=== PATIENT | female | born 1985 | race Caucasian/White ===

== ENCOUNTER 2021-01-15 12:47 | Emergency (ER) | payer OTHER, SELFPAY ==
[2021-01-15 12:51] VITALS: BP 126/78; PULSE 91; RESP 17; TEMP 36.6; O2SAT 99; BMI 28.1
--- NOTE | 2021-01-15 13:09 | EX.ED.DYSGE1 ---
HPI History of Present Illness Chief Complaint: Bite Informant: patient Narrative Narrative: Last night, patient woke up with a noise in her room. She had been woken up several times with the noise but had going back to sleep. When she did wake up finally, she noticed a bat was flying around over her and her 's bed. She does not know if she was bitten. She has looked all over her body and found no bite zohra. She has no symptoms at all. However, she contacted health department that did recommend she start the rabies series. She has never been vaccinated before. She has no symptoms so there is nothing that makes symptoms better or worse. Past medical history positive for hypothyroidism, mitral valve prolapse, Hodgkin's lymphoma many years ago Current medications reviewed Allergies amoxicillin Surgery is hysterectomy about 2 months ago no complaints Non-smoker lives with [facility] Medical History Hx of Hodgkins lymphoma Hypothyroid Mitral valve prolapse Home Medications fexofenadine [Fawn] 180 mg PO Q24H 01/15/21 [History Last Taken Unknown] metoprolol succinate 25 mg PO DAILY 01/15/21 [History Last Taken Unknown] rabies vacc,human diploid (PF) 2.5 unit IM Q3D #1 ea 01/15/21 [Rx Last Taken Unknown] thyroid (pork) [[place] Thyroid] 60 mg PO DAILY 01/15/21 [History Last Taken Unknown] Allergy/AdvReac Type Severity Reaction Status Date / Time amoxicillin Allergy Rash Verified 01/15/21 12:48 Social History Smoking Status: Never smoker ROS ROS ED Constitutional Constitutional ED: Denies chills, fever(s) or sweats Eyes Eyes: Denies change in vision ENT ENT ED: Denies rhinorrhea Cardiovascular Cardiovascular: Denies chest pain or palpitations Respiratory/Chest Respiratory/Chest: Denies cough or dyspnea Gastrointestinal Gastrointestinal: Denies nausea or vomiting Musculoskeletal Musculoskeletal: Denies arthralgias or myalgias Integumentary Reports other Details: Patient cannot find any lesions abrasions or bite richardson. ; Denies Abrasions or rash Neurologic Neurologic: Denies headache(s) Endocrine Endocrinology: Denies polydipsia or polyuria Allergic/Immunologic Allergic/Immunologic ED: Denies urticaria EXAM Physical Exam Const Vital Signs: 01/15/21 12:51 Temperature 97.8 F Temperature Source Temporal Pulse Rate 91 Respiratory Rate 17 Blood Pressure 126/78 H Blood Pressure Mean 94 Pulse Ox 99 Oxygen Delivery Method Room Air Positive well nourished and well developed General Appearance ED: well developed and NAD HEENT Negative for trauma Eyes EOMs intact bilaterally Chest Wall inspection of chest normal Resp normal respiratory effort and clear to auscultation bilaterally Cardio regular rate and regular rhythm Back/Spine no CVA tenderness Extremity normal to inspection Neuro oriented x3 Sensorium / Orientation: alert Psych mental status grossly normal Skin no rashes or lesions noted MDM MDM MDM Narrative Medical decision making narrative: Patient has never been immunized. The bat cannot be obtained for evaluation. She will be given rabies immunoglobulin and initiate the vaccine. We will have her return on day 3 7 and 14. Discharge Plan Triage Chief Complaint: Bite ED Provider: Kaleb Delcid Dx/Rx/DC Orders Clinical Impression: Exposure to bat without known bite, Rabies exposure Prescriptions: New rabies vacc,human diploid (PF) 2.5 unit recon soln 2.5 unit IM Q3D Qty: 1 RF: 0 No Action fexofenadine [Fawn] 180 mg Tablet 180 mg PO Q24H RF: 0 metoprolol succinate 25 mg tablet extended release 24 hr 25 mg PO DAILY RF: 0 thyroid (pork) [[place] Thyroid] 60 mg tablet 60 mg PO DAILY RF: 0 Primary Care Provider: Ronit Ziegler Referrals: [facility] Doctor,Out of [NON-STAFF] - Activity Restrictions/Additional Instructions: Return to emergencies on days 3 7 and 14 for repeat vaccination. Disposition Disposition: Home, Self Care
[2021-01-15] MEDS: Rabies Immune Globulin/PF 300 UNIT/ML, 5 ML VIAL 1500 UNIT IM (13:58)
[2021-01-15] MEDS: Rabies Immune Globulin/PF 300 UNIT/ML, 1 ML VIAL 130 UNIT IM (14:04)
[2021-01-15] MEDS: Rabies Vaccine,Human Diploid 2.5 UNITS Vial IM (14:06)
== END 2021-01-15 14:40 | disposition home or self-care (01) ==
LOC: ED 13:17
PROVIDERS: Emergency Provider Emergency Medicine; PCP Family Medicine
DX: Z20.3 Contact with and (suspected) exposure to rabies (principal); E03.9 Hypothyroidism, unspecified; Z79.899 Other long term (current) drug therapy; Z85.71 Personal history of Hodgkin lymphoma
CPT/HCPCS: 90375; 90675; 96372; 99282

== ENCOUNTER 2021-01-18 09:44 | Outpatient (CLI) | payer OTHER, SELFPAY ==
[2021-01-18] MEDS: Rabies Vaccine,Human Diploid 2.5 UNITS Vial IM (10:10)
[2021-01-18 10:20] VITALS: PULSE 98; RESP 16; TEMP 36.2; O2SAT 98; BMI 28.1; BMI 30.5
--- NOTE | 2021-01-18 10:39 | ED.RN ---
pt was observed for shot time greater than 15 min no reaction noted by this rn. pt d/c
== END 2021-01-18 12:00 | disposition home or self-care (01) ==
LOC: ED 18:47
PROVIDERS: PCP Family Medicine
DX: Z23 Encounter for immunization (principal)
CPT/HCPCS: 90675; 96372

== ENCOUNTER 2021-01-22 10:51 | Outpatient (CLI) | payer OTHER, SELFPAY ==
[2021-01-18 10:20] VITALS: BMI 30.5
[2021-01-22 10:54] VITALS: BP 122/80; PULSE 90; RESP 16; TEMP 36.6; O2SAT 99; BMI 29.6
[2021-01-22] MEDS: Rabies Vaccine,Human Diploid 2.5 UNITS Vial IM (11:30)
[2021-01-22 12:33] VITALS: BMI 29.6
--- NOTE | 2021-01-22 12:34 | ED.RN ---
Rabies vaccine given- filled out paper documentation.
== END 2021-01-22 13:25 | disposition home or self-care (01) ==
LOC: ED 15:44
PROVIDERS: PCP Family Medicine
DX: Z23 Encounter for immunization (principal)
CPT/HCPCS: 90675; 96372

== ENCOUNTER 2021-01-29 12:04 | Outpatient (CLI) | payer OTHER, SELFPAY ==
[2021-01-29 12:05] VITALS: BP 120/84; PULSE 88; PULSE 92; RESP 16; RESP 18; TEMP 36.4; O2SAT 97; BMI 27.8; BMI 29.6
[2021-01-29] MEDS: Rabies Vaccine,Human Diploid 2.5 UNITS Vial IM (12:59)
== END 2021-01-29 14:00 | disposition home or self-care (01) ==
LOC: ED 14:03
PROVIDERS: PCP Family Medicine
DX: Z23 Encounter for immunization (principal)
CPT/HCPCS: 90675; 96372

== ENCOUNTER 2021-12-25 16:58 | Observation (INO) | payer OTHER, SELFPAY ==
[2021-12-25 16:59] VITALS: BP 137/84; PULSE 97; RESP 16; TEMP 36.6; O2SAT 100; BMI 25.0
--- NOTE | 2021-12-25 17:16 | EDS_ITS ---
HPI <SANGITA Doshi - Last Filed: 12/25/21 18:49> History of Present Illness Chief Complaint: Numb/Ting Narrative Narrative: 36-year-old female with past medical history of hypothyroidism, remote ocular migraines presents with visual changes and paresthesias. She felt fine today and then napped from 3 30-4 and woke up and the vision in her left eye was blurry in her left hand felt numb and tingly. There was no diplopia or vision loss and the right eye was unaffected. She thought it was maybe because she slept on that side but the symptoms did not improve. On the drive here her vision returned to normal but she continues to have tingling in the left hand. No motor or speech changes. There was no headache today and she states this is not similar to her remote ocular migraines. No recent illness. PFSH <SANGITA Doshi - Last Filed: 12/25/21 18:49> PFSH Medical History (Updated 12/25/21 @ 22:[address] Kaleb Delcid MD) Hx of Hodgkins lymphoma Hypothyroid Mitral valve prolapse Home Medications fexofenadine 180 mg tablet 180 mg PO Q24H 01/15/21 [History Last Taken Unknown] metoprolol succinate 25 mg tablet,extended release 24 hr 25 mg PO DAILY 01/15/21 [History Last Taken Unknown] thyroid (pork) 60 mg tablet ([place] Thyroid) 45 mg PO DAILY 01/15/21 [History Last Taken Unknown] Allergy/AdvReac Type Severity Reaction Status Date / Time amoxicillin Allergy Rash Verified 12/25/21 17:01 Surgical History (Updated 12/25/21 @ 18:[address] Marilee Lozada MD) History of hysterectomy Social History (Updated 12/25/21 @ 18:[address] Marilee Lozada MD) household members: spouse Smoking Status: Never smoker substance use type: does not use ROS <SANGITA Doshi - Last Filed: 12/25/21 18:49> ROS ED ROS Narrative Constitutional: Negative for fever, chills, malaise. Eyes: Positive for visual change. ENT: Negative for sore throat, ear pain, rhinorrhea. CVS: Negative for palpitations, chest pain, syncope. Respiratory: Negative for shortness of breath, cough, orthopnea. GI: Negative for abdominal pain, nausea, vomiting, diarrhea, constipation, melena, hematochezia. : Negative for dysuria, hematuria or frequency. Neuro: Positive for sensory dysfunction negative for headache, motor dysfunction. Skin: Negative for rash, abscess, or wound. Musc: Negative for joint pain, swelling, trauma. Heme: Negative for easy bruising, bleeding, lymphadenopathy. EXAM <SANGITA Doshi - Last Filed: 12/25/21 18:49> Physical Exam Narrative Exam Narrative: CONST: Patient sitting in no acute distress. EYES: Normal inspection. PERRLA, EOMI, visual lou intact. NECK: Normal inspection. RESP: No respiratory distress, CTAB. CVS: Regular rate and rhythm, no murmur, no gallop. SKIN: Color normal, no rash, warm, dry, intact. EXTREMITIES: Normal appearance, no pedal edema. 2+ radial and PT pulses. NEURO: Oriented x4. Face symmetric, 5/5 strength in upper and lower extremities, no drift, normal sensation. Normal finger-nose and [id number] bilaterally. No aphasia or dysarthria, normal gait. PSYCH: Normal affect. Const Vital Signs: 12/25/21 16:59 12/25/21 21:00 Temperature 97.9 F Temperature Source Temporal Pulse Rate 97 109 H Respiratory Rate 16 15 Blood Pressure 137/84 H 116/78 Blood Pressure Mean 101 90 Pulse Ox 100 99 Oxygen Delivery Method Room Air Room Air <Dr. Kaleb Delcid MD - Last Filed: 12/25/21 22:00> Physical Exam Const Vital Signs: 12/25/21 16:59 12/25/21 21:00 Temperature 97.9 F Temperature Source Temporal Pulse Rate 97 109 H Respiratory Rate 16 15 Blood Pressure 137/84 H 116/78 Blood Pressure Mean 101 90 Pulse Ox 100 99 Oxygen Delivery Method Room Air Room Air MDM <SANGITA Doshi - Last Filed: 12/25/21 18:49> [facility] Narrative Medical decision making narrative: Patient presents with acute onset left blurry vision and left upper extremity paresthesia. Visual disturbance resolved prior to arrival but she continues to have tingling in her left hand. She appears well and nontoxic. Vital signs within normal limits. Pupils are equal round and reactive, extraocular motion intact, and there are no visual field deficits. She has normal motor and sensory function in all extremities. Neurological exam is intact with NIH of 0. She has no headache and her symptoms are not similar to her previous ocular migraines. Labs and CT brain scan were obtained and are both normal. I placed a SOC telemetry neurologist evaluation who will determine disposition. Diagnoses 1. Visual disturbance 2. Left upper extremity paresthesias Lab Data Attestation: I reviewed the patient's lab results. Labs: Laboratory Results - last 24 hr 12/25/21 12/25/21 17:35 17:35 WBC 7.2 RBC 4.62 Hgb 13.7 Hct 40.7 MCV 88.1 MCH 29.7 MCHC 33.7 RDW Std Deviation 41.0 RDW Coeff of Moisés 12.7 Plt Count 236 MPV 9.5 Immature Gran % (Auto) 0.300 Neut % (Auto) 53.2 Lymph % (Auto) 35.3 Emmet % (Auto) 8.1 Eos % (Auto) 2.7 Baso % (Auto) 0.4 Absolute Neuts (auto) 3.8 Absolute Lymphs (auto) 2.53 Nucleated RBC % 0 Sodium 140 Potassium 3.7 Chloride 106 Carbon Dioxide 28.0 Anion Gap 6 BUN 16 Creatinine 0.86 Estim Creat Clear Calc 86.25 Est GFR (MDRD) Af Amer 95 Est GFR (MDRD) Non-Af 79 BUN/Creatinine Ratio 18.7 Glucose 100 Calcium 8.9 Radiography Diagnostic Testing: Clinical Impression(s) from Imaging Studies Brain CT 12/25/21 17:20 IMPRESSION: Negative Brain CT without contrast. Electronically Signed: Teddy Bazzi DO at 18:29 EDT , <Dr. Kaleb Delcid MD - Last Filed: 12/25/21 22:00> [facility] Lab Data Labs: Laboratory Results - last 24 hr 12/25/21 12/25/21 17:35 17:35 WBC 7.2 RBC 4.62 Hgb 13.7 Hct 40.7 MCV 88.1 MCH 29.7 MCHC 33.7 RDW Std Deviation 41.0 RDW Coeff of Moisés 12.7 Plt Count 236 MPV 9.5 Immature Gran % (Auto) 0.300 Neut % (Auto) 53.2 Lymph % (Auto) 35.3 Emmet % (Auto) 8.1 Eos % (Auto) 2.7 Baso % (Auto) 0.4 Absolute Neuts (auto) 3.8 Absolute Lymphs (auto) 2.53 Nucleated RBC % 0 Sodium 140 Potassium 3.7 Chloride 106 Carbon Dioxide 28.0 Anion Gap 6 BUN 16 Creatinine 0.86 Estim Creat Clear Calc 86.25 Est GFR (MDRD) Af Amer 95 Est GFR (MDRD) Non-Af 79 BUN/Creatinine Ratio 18.7 Glucose 100 Calcium 8.9 Radiography Diagnostic Testing: Clinical Impression(s) from Imaging Studies Brain CT 12/25/21 17:20 IMPRESSION: Negative Brain CT without contrast. Electronically Signed: Teddy Bazzi DO at 18:29 EDT , Treatment and Re-Evaluation Narrative: I have personally performed a face to face assessment of the patient and have reviewed the NO Note. I performed a substantive portion of the visit including all aspects of the following. My tijerina findings include: History is consistent with left-sided visual blurriness and left-sided arm tingling. No weakness. She states it was blurriness out of the left eye not the left field of vision. It lasted for about 45 minutes and has now resolved. 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 But this was not the same visual change and she has not gotten a migraine. She is back to baseline. No trauma. She has a history of Hodgkin's lymphoma that was treated with chemo and radiation in 2004. No issues since. No history of MS. Exam is essentially normal at this time. NIH is 0. There is no weakness numbness or tingling. No change in visual field. Range of motion is normal. No rashes. No vesicles. Medical Decison Making work-up were pursued including blood work and CT. CT showed no acute process. Patient's symptoms remained gone. She never developed a headache. We have been trying to get teleneurology evaluation. But evidently they are backed up. We have called them. They are not able to tell us when in the future they will be able to get to her. They cannot give any estimate. I did talk to the hospitalist. This is a young healthy patient. Although she has had migraines at this is not presenting at this point like a typical migraine. Patient will be admitted for further evaluation. Discharge Plan Triage Chief Complaint: Numb/Ting ED Midlevel Provider: Bailey Campuzano ED Provider: Kaleb Delcid Dx/Rx/DC Orders Clinical Impression: Transient visual loss, Paresthesia of left arm Prescriptions: No Action fexofenadine [Fawn] 180 mg Tablet 180 mg PO Q24H metoprolol succinate 25 mg tablet extended release 24 hr 25 mg PO DAILY Label Comments: TAKE 1 TABLET BY MOUTH EVERY DAY DO NOT CRUSH OR CHEW (CONTROLLED RELEASE) thyroid (pork) [[place] Thyroid] 60 mg tablet 45 mg PO DAILY Label Comments: TAKE 1 TABLET BY MOUTH EVERY DAY Primary Care Provider: Ronit Ziegler Referrals: Ronit Ziegler MD [Primary Care Provider] - Disposition Disposition: Acute Care Hospital [facility]
--- NOTE | 2021-12-25 17:20 | CT_ITS ---
INDICATION: visual changes, left arm tingling EXAMINATION: CT BRAIN - CT Head or Brain W/O Contrast Injection TECHNIQUE: Multiple axial images were obtained of the head without intravenous contrast. A radiation dose optimization technique was used for this scan. IV Contrast dosage and agent: None. COMPARISON: No prior comparisons. FINDINGS: BRAIN PARENCHYMA: No intra- or extra-axial hemorrhage. No intracranial mass or mass effect. Jimenez/white matter differentiation is maintained and there is no blurring of the basal ganglia. There is no hyperdense vessel. Posterior fossa structures are unremarkable. CSF SPACES: Appropriate for age. No hydrocephalus. Basal cisterns are patent. CALVARIUM, SKULL BASE, PARANASAL SINUSES AND MASTOID AIR CELLS: Clear. No discrete lytic or blastic abnormalities. ORBITS: Both globes, extraocular muscles, optic nerves and retrobulbar fat appear unremarkable. ASPECTS Score for Acute Strokes: 10 CT/Brain/Head without Contrast IMPRESSION: Negative Brain CT without contrast. Electronically Signed: Teddy Bazzi DO at 18:29 EDT ,
--- NOTE | 2021-12-25 17:39 | TELEMED_ITS ---
[facility] Telemed has confirmed receipt of a request for visit. This document confirms receipt of the order initiating the consult. To find the results of the consultation, please view the patient's reports for the scanned Telemed Consult.
[2021-12-25 17:45] LABS: Absolute Lymphocyte Count 2.53 X10^3/uL (0.83-4.51); Absolute Neutrophil Count 3.8 X10^3/uL (2.0-7.7); Basophil# 0.03 X10^3/uL; Basophil% 0.4 % (0-1); Eosinophil# 0.19 X10^3/uL; Eosinophils% 2.7 % (0-5); Hematocrit 40.7 % (37-47); Hemoglobin 13.7 g/dL (12.0-15.0); Lymphocyte # 2.53 X10^3/ul (0.83-4.51); Lymphocyte % 35.3 % (19-41); Mean Corp Hgb Conc 33.7 g/dL (32-36); Mean Corpuscular Hgb 29.7 pg (27.0-32.0); Mean Corpuscular Volume 88.1 fL (81-99); Mean Platelet Vol. 9.5 fl (6.2-12.0); Monocyte# 0.58 X10^3/uL; Monocyte% 8.1 % (0-10); NRBC Flagged by Analyzer 0 % (0-5); Neutrophil # 3.81 X10^3/uL (2.7-7.7); Neutrophil % 53.2 % (47-70); Platelet Count 236 K/mm3 (150-450); RBC Distribution Width CV 12.7 % (11.6-14.6); Red Blood Count 4.62 M/mm3 (4.2-5.4); White Blood Count 7.2 K/mm3 (4.4-11.0)
[2021-12-25 17:59] LABS: Anion Gap 6 (5-15); BUN 16 mg/dL (7-18); BUN/Creat Ratio 18.7 RATIO (10-20); Calcium,Total 8.9 mg/dL (8.5-10.1); Chloride 106 mmol/L (98-107); Creatinine, Serum 0.86 mg/dL (0.55-1.02); EST Glomerular Filtration Rate 79 mL/min (>60); Est Glom Filt Rate - Afr Amer 95 mL/min (>60); Estimated Creatinine Clearance 86.25 ml/min; Glucose 100 mg/dL (74-106); Potassium 3.7 mmol/L (3.5-5.1); Sodium Level 140 mmol/L (136-145)
[2021-12-25 21:00] VITALS: BP 116/78; PULSE 109; RESP 15; O2SAT 99
--- NOTE | 2021-12-25 22:14 | HP.PCM.HOS_ITS ---
HPI - General General Date of Admission: 12/25/21 Date of Service: 12/25/21 Chief Complaint: L eye vision blurring, LUE paresthesias. 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[employer] w/ PMHx: Allergic Rhinitis, Ocular Migraines, MVP/Sinus tachycardia, Hypothyroidism, Hx Hodgkins Lymphoma who presents to the [facility] ED on 12/25/21 with history of onset visual changes and paresthesias upon awakening from a nap at approximately 3:30-4 pm with left eye blurry vision as well as left hand paresthesias with no specific diplopia, vision loss and right eye noted to be unaffected initially feeling as though she potentially could have had symptoms by sleeping all day on her side however did not improve until her drive on route to the ED for evaluation with denied headache and reported that this is not similar to her prior remote ocular migraines. She notes that her prior migraines which have been remote specifically had sensation of aura to the eye which would expand followed by a focal headache on that side. She does report that she recently flew back from [place] where she was staying at a resort. She reports that the vision changes have completely resolved but she still has very mild residual sensation of left hand tingling. Work-up in the ED included T97.9, heart rate 97, BP 137/84, respiratory rate 16, and a percent on room air, CBC with WC 7.2, hemoglobin 13.7, platelet 236 without marked shift, BMP unremarkable, CT brain with no acute intracranial findings, EKG with sinus rhythm with no acute evidence of ischemia. Upon ED evaluation all symptoms had corrected with NIH stroke scale score 0. In the ED patient administered ASA 324 mg po x 1. [facility] Medical History (Updated 12/25/21 @ 22:[address] Marilee Lozada MD) Allergic rhinitis Hx of Hodgkins lymphoma Hypothyroid Mitral valve prolapse Sinus tachycardia Home Medications fexofenadine 180 mg tablet 180 mg PO Q24H 01/15/21 [History Last Taken Unknown] metoprolol succinate 25 mg tablet,extended release 24 hr 25 mg PO DAILY 01/15/21 [History Last Taken Unknown] thyroid (pork) 60 mg tablet ([place] Thyroid) 45 mg PO DAILY 01/15/21 [History Last Taken Unknown] Allergy/AdvReac Type Severity Reaction Status Date / Time amoxicillin Allergy Rash Verified 12/25/21 17:01 Family History (Updated 12/25/21 @ 22:[address] Marilee Lozada MD) Mother Diabetes Breast cancer other (No notable paternal history including DM, CA, HD.) Surgical History (Updated 12/25/21 @ 22:[address] Marilee Lozada MD) History of biopsy History of hysterectomy History of insertion of tunneled central venous catheter (CVC) with port Hx of unilateral salpingectomy Social History (Updated 12/25/21 @ 22:[address] Marilee Lozada MD) household members: spouse and children Smoking Status: Never smoker alcohol intake: current alcohol intake frequency: holidays/special occasions only substance use type: does not use ROS ROS Narrative Admission Review of Systems: CONSTITUTIONAL: No weight loss, fever, chills, + weakness or fatigue. HEENT: + L eye blurry vision. Eyes: No visual loss, double vision or yellow sclerae. Ears, Nose, Throat: No hearing loss, sneezing, congestion, runny nose or sore throat. SKIN: No rash or itching, lesions, wounds. CARDIOVASCULAR: + Hx MVP w/ Hx palpitations. No chest pain, chest pressure or chest discomfort, edema, orthopnea, syncopal events. RESPIRATORY: No shortness of breath, cough or sputum, wheezing, hemoptysis. GASTROINTESTINAL: No anorexia, nausea, vomiting or diarrhea, abdominal pain, melena, BRBPR. GENITOURINARY: No dysuria, frequency, urgency or retention. NEUROLOGICAL: + L eye blurry vision, LUE paresthesias, Hx migraines. No headache, dizziness, syncope, paralysis, ataxia, focal weakness, change in bowel or bladder control, seizure. MUSCULOSKELETAL: No muscle, back pain, joint pain or stiffness. HEMATOLOGIC: No anemia, bleeding or bruising. LYMPHATICS: + Hx enlarged nodes. No history of splenectomy. PSYCHIATRIC: No history of depression or anxiety. ENDOCRINOLOGIC: No reports of sweating, cold or heat intolerance. No polyuria or polydipsia. ALLERGIES: + history of rhinitis. Vital Signs Vital Signs Vital Signs: 12/25/21 16:59 12/25/21 21:00 Temperature 97.9 F Temperature Source Temporal Pulse Rate 97 109 H Respiratory Rate 16 15 Blood Pressure 137/84 H 116/78 Blood Pressure Mean 101 90 Pulse Ox 100 99 Oxygen Delivery Method Room Air Room Air Weight Weight: 160 lb Body Mass Index (BMI) 25.0 Physical Exam Narrative Physical Examination: General: Awake, alert, oriented x 3 and cooperative, seated upright in the ED bed in no apparent distress. Skin: Normal color, normal turgor, no icterus, no cyanosis. HEENT: AT/NC, EOMI, PERRLA, MMM, no carotid bruits or JVD noted, no recurrent blurry vision complaint, lou of vision intact, bilateral scleral injection evident. Lungs: CTA bilaterally, moderate effort, mild decrease BL bases, no rales, ronchi or wheezing. Heart: Regular rate and rhythm; no gallop, rub audible. Abdomen: Soft, NTTP, ND, normal BS, no HSM. Extremities: No cyanosis, clubbing, or edema. Neurological: Patient awake, alert, oriented as noted, cognitive function intact ; pupils equally reactive to light and accommodation, cranial nerves II-XII grossly normal, lou of vision intact moving all 4 extremities, no focal deficits, strength preserved, FTN/HTS intact, negative babinski. Psychiatric: Affect appears acceptably upset, tearful, no acute evidence of depressive or anxiety feelings or history noted. Results Lab / Micro Data Result Diagrams: 12/25/21 17:35 12/25/21 17:35 Labs: Laboratory Results - last 24 hr 12/25/21 17:35: WBC 7.2, RBC 4.62, Hgb 13.7, Hct 40.7, MCV 88.1, MCH 29.7, MCHC 33.7, RDW Std Deviation 41.0, RDW Coeff of Moisés 12.7, Plt Count 236, MPV 9.5, Immature Gran % (Auto) 0.300, Neut % (Auto) 53.2, Lymph % (Auto) 35.3, [place] % (Auto) 8.1, Eos % (Auto) 2.7, Baso % (Auto) 0.4, Absolute Neuts (auto) 3.8, Absolute Lymphs (auto) 2.53, Nucleated RBC % 0 12/25/21 17:35: Sodium 140, Potassium 3.7, Chloride 106, Carbon Dioxide 28.0, Anion Gap 6, BUN 16, Creatinine 0.86, Estim Creat Clear Calc 86.25, Est GFR (MDRD) Af Amer 95, Est GFR (MDRD) Non-Af 79, BUN/Creatinine Ratio 18.7, Glucose 100, Calcium 8.[address] 12/25/21 17:20 IMPRESSION: Negative Brain CT without contrast. 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: Allergic Rhinitis, Ocular Migraines, MVP/Sinus tachycardia, Hypothyroidism, Hx Hodgkins Lymphoma who presents to the [facility] ED on 12/25/21 with history of onset visual changes and paresthesias upon awakening from a nap at approximately 3:30-4 pm with left eye blurry vision as well as left hand paresthesias with no specific diplopia, vision loss and right eye noted to be unaffected initially feeling as though she potentially could have had symptoms by sleeping all day on her side however did not improve until her drive on route to the ED for evaluation with denied headache and reported that this is not similar to her prior remote ocular migraines. #1. Left eye vision changes, left upper extremity paresthesias concerning for TIA/CVA versus possible Complex Migraine w/ prior Remote Ocular migraine Hx: Will admit to PCU, will obtain MRI Brain with and without given age, MRA Head and Neck, ECHO, PT/OT/Speech/Nutrition evaluation per protocol. Will consult Neurology for evaluation if appropriate once imaging and further work-up obtained. Will maintain on asa, add statin w/ AM FLP, fall precautions. UDS, Mag, TSH/FT4, HgA1c, FLP requested. #2. MVP, sinus tachycardia: From discussions with patient if she does not take her metoprolol she has a resting heart rate in the 130s therefore we will continue metoprolol regimen. #3. Hypothyroidism: Continue home synthroid regimen, TSH and FT4 pending. #4. Allergic rhinitis: We will continue patient on Fawn regimen. #5. History of Hodgkin's lymphoma: Remote history, in remission. #6. DVT prophylaxis: SCDs, Lovenox. Charges/Coding Visit Charges OBSV E&M: 32669 Initial observation care L3
[2021-12-25] MEDS: Aspirin 325 MG Tablet PO (22:46)
[2021-12-25 22:49] VITALS: BP 116/78; PULSE 109; RESP 15; TEMP 36.6; O2SAT 99
[2021-12-25 23:15] LABS: Magnesium 2.1 mg/dL (1.6-2.6)
[2021-12-25 23:55] VITALS: BMI 25.4
[2021-12-26] VITALS (14 sets, daily range): BP systolic 104–124; BP diastolic 61–81; PULSE 79–109; RESP 14–18; TEMP 36–36.6; O2SAT 95–100; BMI 25.4
[2021-12-26 00:23] LABS: Amphetamine Urine VISTA NEGATIVE (<1000 ng/mL); Barbiturate Urine VISTA NEGATIVE (< 200 ng/mL); Benzodiazepine Urine VISTA NEGATIVE (< 200 ng/mL); Cocaine Urine VISTA NEGATIVE (< 300 ng/mL); Ecstacy Urine VISTA NEGATIVE (< 500 ng/mL); Methadone Urine VISTA NEGATIVE (< 300 ng/mL); PCP Urine VISTA NEGATIVE (< 25 ng/mL); THC Urine VISTA NEGATIVE (< 50 ng/mL); Vista UDS pH Range 5
[2021-12-26] MEDS: Metoprolol(XL)Succ 25 MG Tablet PO ×2 (00:33→21:01)
[2021-12-26 06:23] LABS: Absolute Lymphocyte Count 2.46 X10^3/uL (0.83-4.51); Absolute Neutrophil Count 2.8 X10^3/uL (2.0-7.7); Basophil# 0.03 X10^3/uL; Basophil% 0.5 % (0-1); Eosinophil# 0.13 X10^3/uL; Eosinophils% 2.2 % (0-5); Hematocrit 39.3 % (37-47); Hemoglobin 12.9 g/dL (12.0-15.0); Lymphocyte # 2.46 X10^3/ul (0.83-4.51); Lymphocyte % 41.3 % (19-41); Mean Corp Hgb Conc 32.8 g/dL (32-36); Mean Corpuscular Hgb 29.2 pg (27.0-32.0); Mean Corpuscular Volume 88.9 fL (81-99); Mean Platelet Vol. 9.7 fl (6.2-12.0); Monocyte# 0.52 X10^3/uL; Monocyte% 8.7 % (0-10); NRBC Flagged by Analyzer 0 % (0-5); Neutrophil # 2.81 X10^3/uL (2.7-7.7); Neutrophil % 47.1 % (47-70); Platelet Count 205 K/mm3 (150-450); RBC Distribution Width CV 12.6 % (11.6-14.6); RBC Distribution Width SD 41.5 fl (35.1-43.9); Red Blood Count 4.42 M/mm3 (4.2-5.4)
[2021-12-26 07:04] LABS: AST(SGOT) 23 U/L (15-37); Alanine Aminotransfer ALT/SGPT 26 U/L (13-56); Albumin, Serum 3.3 g/dL (3.2-5.0); Alkaline Phosphatase 47 U/L (45-117); Anion Gap 6 (5-15); BUN 14 mg/dL (7-18); BUN/Creat Ratio 16.6 RATIO (10-20); Calcium,Total 8.4 mg/dL (8.5-10.1); Chloride 109 mmol/L (98-107); Cholesterol 131 mg/dL (200); Creatinine, Serum 0.84 mg/dL (0.55-1.02); EST Glomerular Filtration Rate 80 mL/min (>60); Est Glom Filt Rate - Afr Amer 97 mL/min (>60); Estimated Creatinine Clearance 88.31 ml/min; Globulin 3.2 g/dL (2.2-4.2); Glucose 87 mg/dL (74-106); High Density Lipoprotein 43 mg/dL; Potassium 3.4 mmol/L (3.5-5.1); Protein, Total 6.5 g/dL (6.4-8.2); Sodium Level 141 mmol/L (136-145); T4 Free Direct 0.86 ng/dL (0.76-1.46); Thyroid Stim Hormone (TSH) 0.74 uIU/mL (0.358-3.74); Triglycerides 109 mg/dL; Very Low Density Lipoprotein 22 mg/dL (5-40)
[2021-12-26] MEDS: Thyroid 15 MG Tablet 45 MG PO (07:35)
[2021-12-26 07:59] LABS: Hemoglobin A1c 5.4 % (3.8-5.6)
--- NOTE | 2021-12-26 08:27 | PCM.PN.HOSP ---
Documented by User: Jeni Best NP, PLEAT PATTERN[employer]KER-C 12/27/21 08:35 Subjective Subjective Patient seen and examined on 12/26/2021. Anticipated discharge home pending neurology consult however following neurology consult, recommended echocardiogram with bubble study for suspected TIA. Objective Data Objective Data Vital Signs: Vital Signs Temp Pulse Resp BP Pulse Ox O2 Del Method 97.5 F L 83 14 93/56 L 98 Room Air 12/27/21 03:00 12/27/21 06:59 12/27/21 03:00 12/27/21 03:00 12/27/21 03:00 12/27/21 03:00 Oxygen Delivery Method Room Air Weight: 162 lb 11.218 oz Body Mass Index (BMI) 25.4 Intake & Output: Intake and Output for Last 24 Hours 12/25/21 12/26/21 12/27/21 23:59 23:59 23:59 Intake Total 1320 / 1620 300 / 300 Balance 1320 / 1620 300 / 300 Lab / Micro Data Result Diagrams: 12/26/21 05:10 12/26/21 05:10 Radiography Diagnostic Testing: Radiology Impression Brain MRI 12/26/21 10:58 IMPRESSION: Unremarkable examination. No evidence for enhancing intracranial mass, acute infarct, acute intracranial hemorrhage, or other significant signal abnormality in the brain. Electronically Signed: Sue Eric MD at 13:43 EDT , Head MRA 12/26/21 10:58 IMPRESSION: No evidence for focal vascular abnormality in the [place] region. Electronically Signed: Sue Eric MD at 13:45 EDT , Neck MRA 12/26/21 10:58 IMPRESSION: Limited study due to horizontal linear artifact across the bilateral proximal carotid bulbs otherwise negative MRA neck. Electronically Signed: Raghu Armando MD at 13:27 EDT , Physical Exam Const alert, oriented x3 and no apparent distress Orientation / Consciousness: awake, oriented to person, oriented to place and oriented to time HEENT normocephalic and moist oral mucous membranes Eyes PERRL, EOMs intact bilaterally and conjunctivae normal Neck no lymphadenopathy Resp normal respiratory effort and clear to auscultation bilaterally Cardio regular rate, regular rhythm and no murmurs Peripheral Pulses: pulses 2+ throughout GI normal to inspection, nondistended, normoactive bowel sounds, non-tender and non-distended Extremity normal to inspection Skin no rashes or lesions noted Lesions: no lesions Rashes: no rashes Trauma: no lacerations or abrasions Neuro CN's II-XII intact bilaterally, no focal motor deficits, no sensory deficits noted and deep tendon reflexes 2+ bilaterally Neuro Narrative: Mild residual left upper extremity tingling Psych mental status grossly normal and affect normal Assessment & Plan Assessment/Plan (1) TIA (transient ischemic attack): PLAN: Plan 1. Suspected TIA-left eye vision changes and left upper extremity numbness/tingling. MRI of brain, MRA of head and neck unremarkable. [facility] neurology consulted. Recommends continuing aspirin 81 mg daily. Obtain echocardiogram with bubble study to assess for PFO. Outpatient follow-up with ophthalmology and neuro. 2. 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 3. Hypothyroidism-continue Synthroid.? TSH, T4 within normal limits. DVT prophylaxis-Lovenox sc This patient was seen by JJ Rodas under the supervision of Dr. Flood. Documented by User: Dr. Ida Flood DO 12/27/21 14:11 Subjective Subjective This patient was seen in conjunction with Jeni Best NP. The following represents my independent simple examination. Please see below for than the above. Patient was seen in the morning. Awaiting MRI. Vision has resolved. Still experiencing some slight tingling in her left hand on the dorsum but otherwise significantly improved. Anxious to go home when possible. Also awaiting evaluation by [facility] neurology. Objective Data Lab / Micro Data Result Diagrams: 12/26/21 05:10 12/26/21 05:10 Physical Exam Const alert, oriented x3, no apparent distress, average body habitus, healthy appearing and well nourished Constitutional Narrative: Middle-aged white female sitting up in a chair at the bedside, appears comfortable nontoxic, very pleasant Orientation / Consciousness: disoriented HEENT head/scalp atraumatic, moist oral mucous membranes and oropharynx normal HEENT Narrative: Dentition is good, Mallampati is 2, no thrush Head and Scalp: normocephalic Resp normal respiratory effort, no retractions, no use of accessory muscles and clear to auscultation bilaterally Auscultation: Negative for crackles, rales, rhonchi or wheezes Cardio regular rate, regular rhythm, S1 normal heart sound, S2 normal heart sound, no murmurs, no rub, no gallops, no clicks and no JVD GI normal to inspection, nondistended, normoactive bowel sounds, soft to palpation, non-tender and non-distended; Negative for hepatosplenomegaly Extremity normal to inspection and no clubbing, cyanosis or edema Extremity Narrative: 2+ pedal pulses Neuro oriented x3, CN's II-XII intact bilaterally, moves all extremities and no focal motor deficits Neuro Narrative: Mild residual left upper extremity tingling in dorsum of left hand Psych affect normal Assessment & Plan Assessment/Plan (1) TIA (transient ischemic attack): PLAN: Plan Assessment: Suspected TIA-left eye blurred vision/left upper extremity paresthesias History of mitral valve prolapse History of sinus tachycardia Hypothyroidism Plan: MRI today [facility] consultations Echo tomorrow Continue aspirin Based on lipids does not need statin Continue home baseline medications Charges/Coding Visit Charges Inpatient E&M: 01792 Subs Hosp L2
[2021-12-26] MEDS: Aspirin 81 MG TAB.CHEW PO (09:47)
[2021-12-26] MEDS: Loratadine 10 MG Tablet PO (09:48)
--- NOTE | 2021-12-26 10:58 | MRI_ITS ---
HISTORY: CVA. TECHNIQUE: Routine [place]/brain 3D time of flight MR angiogram protocol was performed. 3D reconstructions were reviewed. IV Contrast Dosage and Agent: None. COMPARISON: None FINDINGS: ICAs: No significant stenosis at the intracranial/visualized segments. ACAs: No significant stenosis at the visualized segments. MCAs: No significant stenosis at the visualized segments. toxicology teacher: No significant stenosis at the visualized segments. BASILAR ARTERY: No significant stenosis. VERTEBRAL ARTERIES: No significant stenosis at the intradural/visualized segments. No evidence of intracranial aneurysm or vascular malformation. MRI/MRA Head ONLY without Contrast IMPRESSION: No evidence for focal vascular abnormality in the [place] region. Electronically Signed: Sue Eric MD at 13:45 EDT ,
--- NOTE | 2021-12-26 10:58 | MRI_ITS ---
STUDY: MRA NECK WITHOUT CONTRAST REASON FOR EXAM: Female, 36 years old. CVA TECHNIQUE: Source images were obtained, MIPs were performed. The study was performed unenhanced. COMPARISON: None. FINDINGS: RIGHT CAROTID ARTERIES: Normal right common carotid artery (CCA). Horizontal linear artifact across the right proximal carotid bulb. Normal origin of the right internal carotid (ICA) artery without a hemodynamically significant stenosis. Normal visualized cervical portion of the right internal carotid artery. Normal origin of the right external carotid artery (ECA). LEFT CAROTID ARTERIES: Normal left common carotid artery (CCA). Horizontal linear artifact across the left proximal carotid bulb. Normal origin of the left internal carotid (ICA) artery without a hemodynamically significant stenosis. Normal visualized cervical portion of the left internal carotid artery. Normal origin of the left external carotid artery (ECA). VERTEBRAL ARTERIES: Normal antegrade flow within the bilateral vertebral artery without a hemodynamically significant stenosis. They are codominant. MRI/MRA Neck without Contrast IMPRESSION: Limited study due to horizontal linear artifact across the bilateral proximal carotid bulbs otherwise negative MRA neck. Electronically Signed: Raghu Armando MD at 13:27 EDT ,
--- NOTE | 2021-12-26 10:58 | MRI_ITS ---
HISTORY: CVA. TECHNIQUE: Multiplanar and multisequence MR images of the brain were obtained before and after the intravenous administration of 15 cc Dotarem. 665 images. COMPARISON: CT prior day. FINDINGS: BRAIN PARENCHYMA: No significant signal abnormality or enhancing lesion in the brain parenchyma. No abnormal focus of restricted diffusion. No acute intracranial hemorrhage identified. CSF SPACES: Cerebral ventricles, cortical sulci, and other extra-axial CSF spaces within normal limits in size. No significant midline shift or other mass effect.No extra-axial fluid collection. VASCULAR SYSTEM: Major intracranial flow voids are maintained. PARANASAL SINUSES AND MASTOID AIR CELLS: No significant air fluid levels. ORBITS: Symmetric contents. MRI/Brain W/WO Contrast IMPRESSION: Unremarkable examination. No evidence for enhancing intracranial mass, acute infarct, acute intracranial hemorrhage, or other significant signal abnormality in the brain. Electronically Signed: Sue Eric MD at 13:43 EDT ,
--- NOTE | 2021-12-26 12:07 | NURSING ---
NIH late due to patient being off the floor for MRI.
--- NOTE | 2021-12-26 13:56 | DCINST_ITS ---
Discharge Instructions Diet Discharge Diet: No restrictions Activity Discharge Activity: Return to Normal Activity Dressing / Incision Call your doctor if you observe: Numbness or Tingling, Dizziness and Fainting spells Follow Up Care Test Results: Test results from this visit will be discussed in further detail at your follow- up appointment, if applicable. Discharge Plan Admission Admit Date/Time: 12/25/21 22:27 Primary Reason for Your Visit: Paresthesias, vision changes-TIA/CVA ruled out Attending Provider: Ida Flood Primary Care Provider: Ronit Ziegler Consulting Providers: Marilee Lozada Discharge Orders/Prescriptions Prescriptions: No Action fexofenadine [Fawn] 180 mg Tablet 180 mg PO Q24H metoprolol succinate 25 mg tablet extended release 24 hr 25 mg PO DAILY Label Comments: TAKE 1 TABLET BY MOUTH EVERY DAY DO NOT CRUSH OR CHEW (CONTROLLED RELEASE) thyroid (pork) [[place] Thyroid] 60 mg tablet 45 mg PO DAILY Label Comments: TAKE 1 TABLET BY MOUTH EVERY DAY Referrals / Follow Up: Ronit Ziegler MD [Primary Care Provider] - In 1 Week Disposition Disposition (needs filled in before D/C Order can be placed): Home, Self Care
[2021-12-26] MEDS: 0.9% Saline Lock 10 ML Syringe IV (21:01)
[2021-12-27 02:44] VITALS: PULSE 77
[2021-12-27 03:00] VITALS: BP 93/56; PULSE 84; RESP 14; TEMP 36.4; O2SAT 98
--- NOTE | 2021-12-27 05:55 | ECHOD_ITS ---
Reason For Study: TIA/CVA Procedure This was a 2D Doppler, Color Flow transthoracic echocardiogram. Exam performed portable in patient room. Left Ventricle Normal LV size. Left ventricular systolic function is normal. The estimated ejection fraction is 55 %. Normal diastology for age. No regional wall motion abnormalities noted. Right Ventricle Normal RV size. Normal systolic function. Atria Normal left atrium. Normal right atrium. Bubble contrast study negative for right to left interatrial shunt. Mitral Valve Normal mitral valve. Mild (1+) eccentric mitral valve insufficiency. Tricuspid Valve Normal tricuspid valve. Aortic Valve Trisinus/trileaflet aortic valve. Pulmonic Valve Normal pulmonic valve. Great Vessels Normal aortic root. The pulmonary artery is normal size. Normal inferior vena cava. Pericardium/Pleural No pericardial effusion. MMode/2D Measurements & Calculations LVIDd: 4.1 cm IVSd: 0.91 cm Ao root diam: 2.6 cm LVIDs: 3.0 cm LVPWd: 0.79 cm FS: 26.5 % LVAd ap4: 21.7 cm2 LVAd ap2: 17.7 cm2 SV(MOD-sp4): 27.4 ml LVLd ap4: 7.4 cm LVLd ap2: 7.4 cm EDV(MOD-sp4): 54.1 ml EDV(MOD-sp2): 35.4 ml EDV(sp4-el): 53.7 ml EDV(sp2-el): 35.7 ml LVAs ap4: 14.3 cm2 LVAs ap2: 10.7 cm2 LVLs ap4: 6.9 cm LVLs ap2: 5.7 cm ESV(MOD-sp4): 26.7 ml ESV(MOD-sp2): 16.4 ml ESV(sp4-el): 25.2 ml ESV(sp2-el): 17.0 ml EF(MOD-sp4): 50.7 % EF(MOD-sp2): 53.5 % EF(sp4-el): 53.1 % SV(MOD-sp2): 18.9 ml SV(sp4-el): 28.5 ml LA dimension(2D): 2.7 cm Time Measurements MV dec time: 0.18 sec Doppler Measurements & Calculations MV E max binu: 74.8 cm/sec Lat Peak E' Binu: 11.6 cm/sec Med Peak E' Binu: 11.3 cm/sec MV A max binu: 60.8 cm/sec E/E' lat: 6.5 E/E' med: 6.6 MV E/A: 1.2 MV V2 max: 93.7 cm/sec MV dec slope: 425.8 cm/sec2 Ao V2 max: 95.7 cm/sec MV max P.5 mmHg Ao max P.7 mmHg MV V2 mean: 61.5 cm/sec Ao V2 mean: 69.3 cm/sec MV mean P.7 mmHg Ao mean P.2 mmHg MV V2 VTI: 22.2 cm Ao V2 VTI: 19.5 cm LV V1 max: 84.3 cm/sec PA V2 max: 75.8 cm/sec LV V1 max P.8 mmHg LV V1 mean P.7 mmHg LV V1 mean: 60.3 cm/sec LV V1 VTI: 18.6 cm ECHO/Echo Complete Interpretation Summary Normal LV size. Left ventricular systolic function is normal. The estimated ejection fraction is 55 %. Bubble contrast study negative for right to left interatrial shunt. Normal diastology for age. Mild (1+) eccentric mitral valve insufficiency. Ordering Physician: Ida Flood Performed By: Etelvina Hernandez RCS
[2021-12-27 06:59] VITALS: PULSE 83
[2021-12-27] MEDS: Aspirin 81 MG TAB.CHEW PO (08:12)
[2021-12-27] MEDS: Loratadine 10 MG Tablet PO (08:12)
[2021-12-27] MEDS: Thyroid 15 MG Tablet 45 MG PO (08:13)
[2021-12-27 08:28] VITALS: O2SAT 94
[2021-12-27 09:00] VITALS: BP 91/55; PULSE 84; RESP 18; TEMP 36.7; O2SAT 100
--- NOTE | 2021-12-27 13:15 | PCM.DC ---
Discharge Instructions Diet Discharge Diet: No restrictions Activity Discharge Activity: Return to Normal Activity Dressing / Incision Call your doctor if you observe: Numbness or Tingling, Dizziness and Fainting spells Follow Up Care Test Results: Test results from this visit will be discussed in further detail at your follow-up appointment, if applicable. Discharge Plan Admission Admit Date/Time: 12/25/21 22:27 Primary Reason for Your Visit: Paresthesias, vision changes-possible TIA Attending Provider: Christopher Tomas Primary Care Provider: Ronit Ziegler Consulting Providers: Marilee Lozada ; Ida Flood Discharge Orders/Prescriptions Prescriptions: New aspirin 81 mg Tablet,Chewable 81 mg PO BREAKFAST Qty: 30 0RF Continued fexofenadine 180 mg Tablet 180 mg PO Q24H metoprolol succinate 25 mg tablet extended release 24 hr 25 mg PO DAILY Label Comments: TAKE 1 TABLET BY MOUTH EVERY DAY DO NOT CRUSH OR CHEW (CONTROLLED RELEASE) thyroid (pork) [[place] Thyroid] 60 mg tablet 45 mg PO DAILY Label Comments: TAKE 1 TABLET BY MOUTH EVERY DAY Referrals / Follow Up: Ronit Ziegler MD [Primary Care Provider[facility] - Within 1 Week Margarito Mc MD [STAFF PHYSICIAN] - Within 1 Month Disposition Disposition (needs filled in before D/C Order can be placed): Home, Self Care
--- NOTE | 2021-12-27 13:43 | PCM.DC.SUM ---
Documented by User: Jeni Best NP, ANIMAL SCIENCE PROFESSOR-C 12/27/21 13:43 Providers Date of Admission: 12/25/21 Date of Discharge: 12/27/21 Primary Care Physician: Dr. Ronit Ziegler MD Reason For Visit: TIA/CVA, ? COMPLEX MIGRAINE Diagnosis Discharge Diagnosis (1) Transient visual loss: Status: Acute Code(s): H53.129 - Transient visual loss, unspecified eye (2) Paresthesia of left arm: Status: Acute Code(s): R20.2 - Paresthesia of skin Medications at Discharge Home Medications fexofenadine 180 mg tablet 180 mg PO Q24H 01/15/21 metoprolol succinate 25 mg tablet,extended release 24 hr 25 mg PO DAILY 01/15/21 thyroid (pork) 60 mg tablet ([place] Thyroid) 45 mg PO DAILY 01/15/21 aspirin 81 mg chewable tablet 81 mg PO BREAKFAST #30 tabs 12/27/21 Hospital Course Operations None Procedures 2-D Echocardiogram Summary of Care Provided Hospital Course: Patient is a 36-year-old female admitted 12/25/2021 due to left eye vision blurring and left upper extremity paresthesias. 1. Probable TIA-MRI of brain, MRA of head and neck unremarkable. [facility] neurology consulted during admission. Recommends continued daily baby aspirin. Echocardiogram negative for PFO, EF 55%, mild mitral valve insufficiency. Follow-up with neurology and ophthalmology. TIA risk factors include recent COVID as well as recent travel. Lipid profile within normal limits. 2. 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 Echo per above. 3. Hypothyroidism-continue Synthroid. TSH, T4 within normal limits. Physical Exam Const alert, oriented x3 and no apparent distress Orientation / Consciousness: awake, oriented to person, oriented to place and oriented to time HEENT normocephalic and moist oral mucous membranes Eyes PERRL, EOMs intact bilaterally and conjunctivae normal Neck no lymphadenopathy Resp normal respiratory effort and clear to auscultation bilaterally Cardio regular rate, regular rhythm and no murmurs Peripheral Pulses: pulses 2+ throughout GI normal to inspection, nondistended, normoactive bowel sounds, non-tender and non-distended Extremity normal to inspection Skin no rashes or lesions noted Lesions: no lesions Rashes: no rashes Trauma: no lacerations or abrasions Neuro CN's II-XII intact bilaterally, no focal motor deficits, no sensory deficits noted and deep tendon reflexes 2+ bilaterally Neuro Narrative: Neuro grossly intact Psych mental status grossly normal and affect normal Patient seen and examined prior to discharge. Physical assessment as noted above. Patient is stable for discharge with follow up recommendations as noted above. This patient was seen by JJ Rodas under the supervision of Dr. Tomas. Time spent examining patient, reviewing data and subsequent management of care: 23 minutes Physical Exam Const alert, oriented x3 and no apparent distress Orientation / Consciousness: awake, oriented to person, oriented to place and oriented to time HEENT normocephalic and moist oral mucous membranes Eyes PERRL, EOMs intact bilaterally and conjunctivae normal Neck no lymphadenopathy Resp normal respiratory effort and clear to auscultation bilaterally Cardio regular rate, regular rhythm and no murmurs Peripheral Pulses: pulses 2+ throughout GI normal to inspection, nondistended, normoactive bowel sounds, non-tender and non-distended Extremity normal to inspection Skin no rashes or lesions noted Lesions: no lesions Rashes: no rashes Trauma: no lacerations or abrasions Neuro CN's II-XII intact bilaterally, no focal motor deficits, no sensory deficits noted and deep tendon reflexes 2+ bilaterally Neuro Narrative: Mild tingling left upper extremity, sensation intact. Psych mental status grossly normal and affect normal Weight / BMI Weight Weight: 162 lb 11.218 oz Body Mass Index (BMI) 25.4 ABG / Lab / Microbiology Data Result Diagrams: 12/26/21 05:10 12/26/21 05:10 Laboratory: Laboratory Results - last 24 hr 12/25/21 17:35: WBC 7.2, RBC 4.62, Hgb 13.7, Hct 40.7, MCV 88.1, MCH 29.7, MCHC 33.7, RDW Std Deviation 41.0, RDW Coeff of [place] 12.7, Plt Count 236, MPV 9.5, Immature Gran % (Auto) 0.300, Neut % (Auto) 53.2, Lymph % (Auto) 35.3, [place] % (Auto) 8.1, Eos % (Auto) 2.7, Baso % (Auto) 0.4, Absolute Neuts (auto) 3.8, Absolute Lymphs (auto) 2.53, Nucleated RBC % 0 12/25/21 17:35: Sodium 140, Potassium 3.7, Chloride 106, Carbon Dioxide 28.0, Anion Gap 6, BUN 16, Creatinine 0.86, Estim Creat Clear Calc 86.25, Est GFR (MDRD) Af Amer 95, Est GFR (MDRD) Non-Af 79, BUN/Creatinine Ratio 18.7, Glucose 100, Calcium 8.9 12/25/21 17:38: Magnesium 2.1 12/25/21 22:52: Urine Opiates Screen NEGATIVE, Urine Methadone Screen NEGATIVE, Ur Barbiturates Screen NEGATIVE, Ur Phencyclidine Scrn NEGATIVE, Ur Amphetamines Screen NEGATIVE, MDMA (Ecstasy) Screen NEGATIVE, U Benzodiazepines Scrn NEGATIVE, Urine Cocaine Screen NEGATIVE, U Cannabinoids Screen NEGATIVE, Ur Drug Screen Comment 12/26/21 05:10: WBC 6.0, RBC 4.42, Hgb 12.9, Hct 39.3, MCV 88.9, MCH 29.2, MCHC 32.8, RDW Std Deviation 41.5, RDW Coeff of [place] 12.6, Plt Count 205, MPV 9.7, Immature Gran % (Auto) 0.200, Neut % (Auto) 47.1, Lymph % (Auto) 41.3 H, [place] % (Auto) 8.7, Eos % (Auto) 2.2, Baso % (Auto) 0.5, Absolute Neuts (auto) 2.8, Absolute Lymphs (auto) 2.46, Nucleated RBC % 0 12/26/21 05:10: Sodium 141, Potassium 3.4 L, Chloride 109 H, Carbon Dioxide 26.0, Anion Gap 6, BUN 14, Creatinine 0.84, Estim Creat Clear Calc 88.31, Est GFR (MDRD) Af Amer 97, Est GFR (MDRD) Non-Af 80, BUN/Creatinine Ratio 16.6, Glucose 87, Calcium 8.4 L, Total Bilirubin 0.70, AST 23, ALT 26, Alkaline Phosphatase 47, Total Protein 6.5, Albumin 3.3, Globulin 3.2, Albumin/Globulin Ratio 1.0, Triglycerides 109, Cholesterol 131, LDL Cholesterol 66, VLDL Cholesterol 22, HDL Cholesterol 43, TSH 0.74, Free T4 0.86 12/26/21 05:10: Hemoglobin A1c 5.4 Radiography Diagnostic Testing: Radiology Impression Brain CT 12/25/21 17:20 IMPRESSION: Negative Brain CT without contrast. Electronically Signed: Teddy DO Rose Mary at 18:29 EDT , Brain MRI 12/26/21 10:58 IMPRESSION: Unremarkable examination. No evidence for enhancing intracranial mass, acute infarct, acute intracranial hemorrhage, or other significant signal abnormality in the brain. Electronically Signed: Sue Eric MD at 13:43 EDT , Head MRA 12/26/21 10:58 IMPRESSION: No evidence for focal vascular abnormality in the [place] region. Electronically Signed: Sue Eric MD at 13:45 EDT , Neck MRA 12/26/21 10:58 IMPRESSION: Limited study due to horizontal linear artifact across the bilateral proximal carotid bulbs otherwise negative MRA neck. Electronically Signed: Raghu Armando MD at 13:27 EDT , D/C Instructions Discharge Diet: No restrictions Call your doctor if you observe: Numbness or Tingling, Dizziness and Fainting spells Meaningful Use Info Meaningful Use Diagnoses (Choose all that apply): None applicable Discharge Plan Admission Admit Date/Time: 12/25/21 22:27 Primary Reason for Your Visit: Paresthesias, vision changes-possible TIA Attending Provider: Christopher Tomas Primary Care Provider: Ronit Ziegler Consulting Providers: Marilee Lozada ; Ida Flood Discharge Orders/Prescriptions Prescriptions: New aspirin 81 mg Tablet,Chewable 81 mg PO BREAKFAST Qty: 30 0RF Continued fexofenadine 180 mg Tablet 180 mg PO Q24H metoprolol succinate 25 mg tablet extended release 24 hr 25 mg PO DAILY Label Comments: TAKE 1 TABLET BY MOUTH EVERY DAY DO NOT CRUSH OR CHEW (CONTROLLED RELEASE) thyroid (pork) [[place] Thyroid] 60 mg tablet 45 mg PO DAILY Label Comments: TAKE 1 TABLET BY MOUTH EVERY DAY Referrals / Follow Up: [facility] [Other] - Within 1 Week Ronit Ziegler MD [Primary Care Provider] - In 1 Week Margarito Mc MD [STAFF PHYSICIAN] - Within 1 Month Disposition Disposition (needs filled in before D/C Order can be placed): Home, Self Care Documented by User: Dr. Chritsopher Tomas MD 12/27/21 14:19 Providers Date of Admission: 12/25/21 Reason For Visit: TIA/CVA, ? COMPLEX MIGRAINE Diagnosis Discharge Diagnosis (1) Transient visual loss: Status: Acute Code(s): H53.129 - Transient visual loss, unspecified eye (2) Paresthesia of left arm: Status: Acute Code(s): R20.2 - Paresthesia of skin Medications at Discharge Home Medications fexofenadine 180 mg tablet 180 mg PO Q24H 01/15/21 metoprolol succinate 25 mg tablet,extended release 24 hr 25 mg PO DAILY 01/15/21 thyroid (pork) 60 mg tablet ([place] Thyroid) 45 mg PO DAILY 01/15/21 aspirin 81 mg chewable tablet 81 mg PO BREAKFAST #30 tabs 12/27/21 ABG / Lab / Microbiology Data Result Diagrams: 12/26/21 05:10 12/26/21 05:10 Discharge Plan Admission Admit Date/Time: 12/25/21 22:27 Primary Reason for Your Visit: Paresthesias, vision changes-possible TIA Attending Provider: Christopher Tomas Primary Care Provider: Ronit Ziegler Consulting Providers: Marilee Lozada ; Ida Flood Discharge Orders/Prescriptions Prescriptions: New aspirin 81 mg Tablet,Chewable 81 mg PO BREAKFAST Qty: 30 0RF Continued fexofenadine 180 mg Tablet 180 mg PO Q24H metoprolol succinate 25 mg tablet extended release 24 hr 25 mg PO DAILY Label Comments: TAKE 1 TABLET BY MOUTH EVERY DAY DO NOT CRUSH OR CHEW (CONTROLLED RELEASE) thyroid (pork) [[place] Thyroid] 60 mg tablet 45 mg PO DAILY Label Comments: TAKE 1 TABLET BY MOUTH EVERY DAY Referrals / Follow Up: [facility] [Other] - Within 1 Week Ronit Ziegler MD [Primary Care Provider] - In 1 Week Margarito Mc MD [STAFF PHYSICIAN] - Within 1 Month Disposition Disposition (needs filled in before D/C Order can be placed): Home, Self Care Charges/Coding Addendum Addendum: Addendum: Dr. Tomas I personally examined the patient and reviewed the chart. I agree with the above. 36-year-old female presented with strokelike symptoms consisting of left eye vision changes which was just blurry as well as some left upper extremity paresthesias. There is some concern for TIA versus CVA so an MRI was obtained which was unremarkable. Neurology had recommended echo to evaluate for PFO, this was also negative. Her left eye vision changes has completely resolved and her left upper extremity paresthesias were intermittent. I recommend that she continue to follow-up with neurology he as an outpatient, and to continue to take her aspirin. I discussed with her the plan for discharge today she expressed understanding of the risk benefits of going home and would like to go home today. Clinical time spent in all aspects of patient care: 30 minutes Visit Charges OBSV E&M: [id number] Observation care discharge
== END 2021-12-27 13:22 | disposition home or self-care (01) ==
LOC: ED 22:00 → PCU 22:56
PROVIDERS: Physician Assistant; Admitting Provider Family Medicine; Emergency Provider Emergency Medicine; PCP Family Medicine; Visit Provider Family Medicine
DX: R20.2 Paresthesia of skin (principal); E03.9 Hypothyroidism, unspecified; H53.122 Transient visual loss, left eye; R29.700 NIHSS score 0; Z79.899 Other long term (current) drug therapy; Z79.890 Hormone replacement therapy; Z85.71 Personal history of Hodgkin lymphoma; I34.0 Nonrheumatic mitral (valve) insufficiency; Z86.16 Personal history of COVID-19; R00.0 Tachycardia, unspecified
CPT/HCPCS: 36415; 70450; 70544; 70547; 70553; 80048; 80053; 80061; 80307; 83036; 83735; 84439; 84443; 85025; 92523; 92610; 93306; 99218; 99284; A9575; A4216; G0378